=== PATIENT | female | born 1955 | race Caucasian/White ===

== ENCOUNTER 2016-08-03 16:45 | Outpatient (CLI) | payer OTHER | END 2016-08-03 16:46 | disposition home or self-care (01) | DX: L03.039 Cellulitis of unspecified toe (principal) ==

== ENCOUNTER 2016-10-12 07:50 | Day surgery (SDC) | payer OTHER ==
[2016-10-12] MEDS ORDERED: LACTATED RINGERS 1,000 ML IV ONE (08:26)
[2016-10-12] MEDS ORDERED: LIDOCAINE-MPF 2% 5 ML VIAL IM ONE (09:30)
[2016-10-12] MEDS ORDERED: PROPOFOL 200 MG/20 ML VIAL IVP ONE (09:30)
[2016-10-12] MEDS ORDERED: MIDAZOLAM 2 MG/2 ML VIAL IVP ONE (09:30)
[2016-10-12] MEDS ORDERED: fentaNYL 250 MCG/5 ML VIAL IVP ONE (09:30)
== END 2016-10-12 07:51 | disposition home or self-care (01) ==
PROC: 0DJD8ZZ Inspection of Lower Intestinal Tract, Via Natural or Artificial Opening Endoscopic (ICD-10-PCS; principal; 2016-10-12 09:15)
DX: Z12.11 Encounter for screening for malignant neoplasm of colon (principal); K57.30 Diverticulosis of large intestine without perforation or abscess without bleeding; K64.4 Residual hemorrhoidal skin tags; K64.8 Other hemorrhoids; Z88.2 Allergy status to sulfonamides; Z95.0 Presence of cardiac pacemaker; Z80.3 Family history of malignant neoplasm of breast; Z82.62 Family history of osteoporosis; Z82.49 Family history of ischemic heart disease and other diseases of the circulatory system; Z87.891 Personal history of nicotine dependence
CPT/HCPCS: 45378; J3010; J7120

== ENCOUNTER 2016-11-25 09:37 | Outpatient (CLI) | payer OTHER | END 2016-11-25 09:38 | disposition home or self-care (01) | DX: Z12.31 Encounter for screening mammogram for malignant neoplasm of breast (principal); Z80.3 Family history of malignant neoplasm of breast ==

== ENCOUNTER 2018-02-01 08:00 | Outpatient (CLI) | payer OTHER ==
[2018-02-01 13:33] LABS: BASOPHILS % (AUTO) 0.8 %; EOSINOPHILS # (AUTO) 0.1 10^3/uL (0.0-0.7); EOSINOPHILS % (AUTO) 2.2 %; HGB - HEMOGLOBIN 14.6 g/dL (12.0-16.0); LYMPHOCYTES # (AUTO) 1.3 10^3/uL (1.5-3.5); LYMPHOCYTES % (AUTO) 28.2 %; MEAN CORPUSCULAR HEMOGLOBIN 32.2 pg (27.0-31.0); MEAN CORPUSCULAR HGB CONC 34.9 g/dL (32.0-36.0); MEAN CORPUSCULAR VOLUME 92.2 fL (81.0-99.0); MEAN PLATELET VOLUME 7.9 fL (7.9-10.8); MONOCYTES # (AUTO) 0.4 10^3/uL (0.0-1.0); MONOCYTES % (AUTO) 8.3 %; NEUTROPHILS # (AUTO) 2.8 10^3/uL (1.5-6.6); NEUTROPHILS % (AUTO) 60.5 %; PLT - PLATELET COUNT 273 10^3/uL (130-450); RED BLOOD COUNT 4.55 10^6/uL (4.20-5.40); WHITE BLOOD COUNT 4.6 x10^3/uL (4.8-10.8)
[2018-02-01 14:05] LABS: ALBUMIN 4.1 g/dL (3.2-5.5); ALBUMIN/GLOBULIN RATIO 1.6 (1.0-2.2); ALKALINE PHOSPHATASE 78 IU/L (42-121); ALT ALANINE AMINOTRANSFERASE 29 IU/L (10-60); AST ASPARTATE AMINOTRANSFERASE 23 IU/L (10-42); BILIRUBIN,TOTAL 0.7 mg/dL (0.2-1.0); BUN - BLOOD UREA NITROGEN 15 mg/dL (6-20); CARBON DIOXIDE - CO2 26 mmol/L (21-32); CHLORIDE 104 mmol/L (101-111); CHOL/HDL RATIO 3.9 (<4.4); CHOLESTEROL 223 mg/dL; CREATININE 0.6 mg/dL (0.4-1.0); GFR - MDRD 101 (>89); GLUCOSE 103 mg/dL (70-100); HDL CHOLESTEROL 57 mg/dL; LDL CHOLESTEROL,CALCULATED 136 mg/dL; LDL/HDL RATIO 2.4 (<4.4); SODIUM 137 mmol/L (135-145); TOTAL PROTEIN 6.6 g/dL (6.7-8.2); VLDL CHOLESTEROL 30 mg/dL
[2018-02-01 14:38] LABS: HB2 TOTAL 15.6 g/dL; HEMOGLOBIN A1C 0.56 g/dL; HEMOGLOBIN A1C % 5.4 % (4.6-6.2)
== END 2018-02-01 08:01 | disposition home or self-care (01) ==
LOC: LAB.WCP 08:00
PROVIDERS: ATTEND Family Medicine
DX: Z00.00 Encounter for general adult medical examination without abnormal findings (principal); E78.5 Hyperlipidemia, unspecified; E55.9 Vitamin D deficiency, unspecified
CPT/HCPCS: 36415; 80053; 80061; 82306; 83036; 83721; 84443; 85025

== ENCOUNTER 2018-03-02 14:12 | Outpatient (CLI) | payer OTHER ==
--- NOTE | 2018-03-17 17:57 | Mammography Report ---
Reason: SCREENING MAMMO Procedure Date: 03/02/2018 Accession Number: [id number] / [id number] Procedure: ALISA - Screening Mammo Dig Bilat CPT Code: FULL RESULT: EXAM: Screening Mammo Dig Bilat DATE: 03/02/2018 3:05 PM CLINICAL HISTORY: 63-year-old female with family history of breast cancer in the mother in her 60s as well as an aunt and a grandmother at an unknown age. TECHNIQUE: Bilateral CC and MLO views were obtained. Cleavage view was also obtained. COMPARISON: 11/25/2016, 10/16/2015, 08/22/2014, 06/21/2013. FINDINGS: The breasts demonstrate scattered fibroglandular densities bilaterally. Coarse typically benign calcifications are seen breast. No suspicious masses, clustered microcalcifications, or regions of architectural distortion are identified. IMPRESSION: Benign findings RECOMMENDATION: Routine annual screening unless otherwise clinically indicated. BIRADS CATEGORY 2: Benign findings STANDARD QUALIFYING STATEMENTS: 1. This examination was not reviewed with the aid of Computer-Aided Detection (CAD). 2. A negative or benign imaging report should not delay biopsy if clinically suspicious findings are present. Consider surgical consultation if warrented. More than 5% of cancers are not identified by imaging. 3. Dense breasts may obscure an underlying neoplasm. 4. This examination was reviewed with the aid of 3D imaging (tomography).
== END 2018-03-02 14:13 | disposition home or self-care (01) ==
LOC: DI 14:12
PROVIDERS: ATTEND Family Medicine
DX: Z12.31 Encounter for screening mammogram for malignant neoplasm of breast (principal); Z80.3 Family history of malignant neoplasm of breast
CPT/HCPCS: 77063; 77067

== ENCOUNTER 2018-03-02 14:14 | Outpatient (CLI) | payer OTHER ==
--- NOTE | 2018-03-02 16:16 | DEXA Report ---
Reason: OSTEOPOROSIS NOS Procedure Date: 03/02/2018 Accession Number: [id number] / [id number] Procedure: DEX - Dexa Spine and/or Hip CPT Code: FULL RESULT: EXAM: DUAL EMISSION X-RAY ABSORPTIOMETRY (DXA) SCAN EXAM DATE: 03/02/2018 03:08 PM. CLINICAL HISTORY: OSTEOPOROSIS WITH HISTORY OF ALENDRONATE USAGE COMPARISON: 01/01/2016. ADDITIONAL PATIENT INFORMATION: Postmenopausal. TECHNIQUE: Dual energy x-ray absorptiometry (DXA) was performed on a [employer] System. Regions measured at the AP spine, femoral neck, and if needed, forearm. TECHNIQUE LIMITATIONS/EXCLUSIONS: FINDINGS: Bone mineral density L1-L4: 0.929 g/cm, T score -2.1 this represents a 0.4% increase in bone mineral density compared with the prior 01/01/2016 examination. Bone mineral density left femoral neck: 0.834 g/cm, T score -1.5. Total bone mineral density left hip: 0.861 g/cm, T score -1.2. This represents a 2.7% decrease in total left hip bone mineral density since 01/01/2016. IMPRESSION: The World Health Organization classification based on the International Reference Standard is osteopenia. The fracture risk is increased. World Health Organization (WHO) Reporting guidelines (based on lowest BMD) for postmenopausal and perimenopausal women, men age 50 years and older: Normal: T-score at or greater than -1.0 Osteopenia: T-score between -1.1 to -2.4 Osteoporosis: T-score at or less than -2.5 RADIA
== END 2018-03-02 14:15 | disposition home or self-care (01) ==
LOC: DI 14:14
PROVIDERS: ATTEND Physician Assistant Medical
DX: M85.89 Other specified disorders of bone density and structure, multiple sites (principal); Z79.83 Long term (current) use of bisphosphonates
CPT/HCPCS: 77080

== ENCOUNTER 2018-03-31 11:44 | Outpatient (CLI) | payer OTHER ==
[2018-03-31 12:10] LABS: CALCIUM 9.1 mg/dL (8.5-10.3); CREATININE 0.8 mg/dL (0.4-1.0)
--- NOTE | 2018-03-31 15:32 | CT Report ---
Reason: ABDOMINAL PAIN, LLQ Procedure Date: 03/31/2018 Accession Number: [id number] / [id number] Procedure: CT - Abdomen/Pelvis W/ CPT Code: FULL RESULT: EXAM: CT ABDOMEN AND PELVIS EXAM DATE: 03/31/2018 02:39 PM. CLINICAL HISTORY: Left lower quadrant pain. COMPARISONS: None. TECHNIQUE: Routine helical CT imaging was performed through the abdomen and pelvis. IV contrast: 100 mL Isovue-300. Enteric contrast: Yes. Reconstructions: Coronal and sagittal. In accordance with CT protocol optimization, one or more of the following dose reduction techniques were utilized for this exam: automated exposure control, adjustment of mA and/or KV based on patient size, or use of iterative reconstructive technique. FINDINGS: Lung Bases: Minor atelectatic changes are seen in the lung bases. No effusion. Liver: Normal. No masses. Gallbladder/Bile Ducts: Cholecystectomy changes are seen. There is no biliary dilation. Spleen: Normal. Pancreas: Normal. Adrenal Glands: Normal. Kidneys: Normal. No masses or hydronephrosis. Peritoneal Cavity/Bowel: There is moderate diverticulosis of the sigmoid colon. In the proximal to midportion there is mild wall thickening and fat stranding consistent with diverticulitis (image 66, series 3). There is no abscess, free fluid, or free air. There is no obstruction or ileus. The appendix is well visualized and normal. Pelvic Organs: Normal. The bladder and visualized pelvic organs are within normal limits. Vasculature: No aneurysms or other significant abnormality. Bones: No significant abnormality. Other: None. IMPRESSION: Mild uncomplicated sigmoid diverticulitis. No abscess, free fluid, or free air demonstrated. RADIA The above findings were discussed with Calli Valentin by Dr. Sundar Bryant at 15:30 hrs on 03/31/18.
[2018-03-31] MEDS ORDERED: IOPAMIDOL-300 50 ML VIAL PO ONE (18:45)
[2018-03-31] MEDS ORDERED: IOPAMIDOL-300 100 ML VIAL IVP ONE (18:45)
== END 2018-03-31 11:45 | disposition home or self-care (01) ==
LOC: LAB 11:44
PROVIDERS: ATTEND Physician Assistant
DX: K57.32 Diverticulitis of large intestine without perforation or abscess without bleeding (principal)
CPT/HCPCS: 36415; 74177; 80048; Q9967

== ENCOUNTER 2018-09-07 08:00 | Outpatient (CLI) | payer OTHER ==
[2018-09-07 13:24] LABS: CHOL/HDL RATIO 3.5 (<4.4); CHOLESTEROL 190 mg/dL; HDL CHOLESTEROL 55 mg/dL; LDL CHOLESTEROL,CALCULATED 105 mg/dL; LDL/HDL RATIO 1.9 (<4.4); VLDL CHOLESTEROL 30 mg/dL
== END 2018-09-07 23:59 ==
LOC: LAB.WCP 08:00
PROVIDERS: ATTEND Family Medicine
DX: E78.5 Hyperlipidemia, unspecified (principal)
CPT/HCPCS: 36415; 80061; 83721

== ENCOUNTER 2019-03-01 13:21 | Outpatient (CLI) | payer OTHER ==
--- NOTE | 2019-03-02 09:53 | XRAY Report ---
Reason: BRONCHITIS Procedure Date: 03/01/2019 Accession Number: [id number] / [id number] Procedure: WCP - Chest 2 View X-Ray CPT Code: 91784 FULL RESULT: EXAM: CHEST RADIOGRAPHY EXAM DATE: 03/01/2019 01:42 PM. CLINICAL HISTORY: Bronchitis. COMPARISON: None. TECHNIQUE: 2 views. FINDINGS: Lungs/Pleura: No focal opacities evident. No pleural effusion. No pneumothorax. Normal volumes. Mediastinum: Heart and mediastinal contours are unremarkable. Other: Bipolar cardiac pacer left chest. IMPRESSION: No focal consolidations identified. RADIA
== END 2019-03-01 23:59 | disposition home or self-care (01) ==
LOC: DI.WCP 13:21 → EDSTATUS 13:30 → DI.WCP 23:59
PROVIDERS: ATTEND Family Medicine
DX: J20.9 Acute bronchitis, unspecified (principal)
CPT/HCPCS: 71046

== ENCOUNTER 2019-03-29 09:20 | Outpatient (CLI) | payer OTHER | END 2019-03-29 23:59 | disposition home or self-care (01) | LOC: LAB.WCP 09:20 | PROVIDERS: ATTEND Family Medicine | DX: E55.9 Vitamin D deficiency, unspecified (principal); M81.0 Age-related osteoporosis without current pathological fracture | CPT/HCPCS: 36415; 82306 ==

== ENCOUNTER 2019-07-05 08:00 | Outpatient (CLI) | payer OTHER ==
[2019-07-05 12:23] LABS: BASOPHILS % (AUTO) 0.4 %; EOSINOPHILS # (AUTO) 0.1 10^3/uL (0.0-0.7); EOSINOPHILS % (AUTO) 2.9 %; HGB - HEMOGLOBIN 14.5 g/dL (12.0-16.0); LYMPHOCYTES # (AUTO) 1.3 10^3/uL (1.5-3.5); LYMPHOCYTES % (AUTO) 29.5 %; MEAN CORPUSCULAR HEMOGLOBIN 31.5 pg (27.0-31.0); MEAN CORPUSCULAR HGB CONC 33.6 g/dL (32.0-36.0); MEAN CORPUSCULAR VOLUME 93.7 fL (81.0-99.0); MEAN PLATELET VOLUME 9.4 fL (7.9-10.8); MONOCYTES # (AUTO) 0.5 10^3/uL (0.0-1.0); MONOCYTES % (AUTO) 10.5 %; NEUTROPHILS # (AUTO) 2.6 10^3/uL (1.5-6.6); NEUTROPHILS % (AUTO) 56.5 %; PLT - PLATELET COUNT 297 10^3/uL (130-450); RED CELL DISTRIBUTION WIDTH 12.1 % (12.0-15.0); WHITE BLOOD COUNT 4.6 x10^3/uL (4.8-10.8)
[2019-07-05 13:01] LABS: ALBUMIN 4.2 g/dL (3.2-5.5); ALBUMIN/GLOBULIN RATIO 1.4 (1.0-2.2); BILIRUBIN,TOTAL 0.5 mg/dL (0.2-1.0); CALCIUM 9.4 mg/dL (8.5-10.3); CREATININE 0.6 mg/dL (0.4-1.0); TOTAL PROTEIN 7.1 g/dL (6.7-8.2)
== END 2019-07-05 23:59 | disposition home or self-care (01) ==
LOC: LAB.WCP 08:00
PROVIDERS: ATTEND Family Medicine
DX: K57.92 Diverticulitis of intestine, part unspecified, without perforation or abscess without bleeding (principal)
CPT/HCPCS: 36415; 80053; 85025

== ENCOUNTER 2019-07-05 16:17 | Outpatient (CLI) | payer OTHER ==
[2019-07-05] MEDS ORDERED: IOVERSOL 320 50 ML VIAL ONE (16:21)
[2019-07-05] MEDS ORDERED: IOVERSOL 320 100 ML VIAL IVP ONE ×2 (16:21→17:37)
[2019-07-05] MEDS ORDERED: IOVERSOL 320 50 ML VIAL PO ONE (17:37)
--- NOTE | 2019-07-06 09:54 | CT Report ---
Reason: DIVERTICULITIS ACUTE Procedure Date: 07/05/2019 Accession Number: [id number] / [id number] Procedure: CT - Abdomen/Pelvis W CPT Code: Final Report FULL RESULT: EXAM: CT ABDOMEN AND PELVIS EXAM DATE: 07/05/2019 05:38 PM. CLINICAL HISTORY: DIVERTICULITIS ACUTE. COMPARISONS: ABDOMEN/PELVIS W/ 03/31/2018 2:35 PM. TECHNIQUE: Routine helical CT imaging was performed through the abdomen and pelvis. IV contrast: OPTI 320 100ML. Enteric contrast: No. Reconstructions: Coronal and sagittal. In accordance with CT protocol optimization, one or more of the following dose reduction techniques were utilized for this exam: automated exposure control, adjustment of mA and/or KV based on patient size, or use of iterative reconstructive technique. FINDINGS: Lung Bases: Pacer defibrillator. Mild bibasilar atelectasis Liver: Normal. No masses. Gallbladder/Bile Ducts: Post cholecystectomy Spleen: Normal. Pancreas: Normal. Adrenal Glands: Normal. Kidneys: Normal. No masses or hydronephrosis. Peritoneal Cavity/Bowel: Diverticulosis most prominent in the sigmoid colon.. No free fluid, free air or adenopathy. No masses or acute inflammatory process. The appendix is well visualized and normal. Pelvic Organs: Normal. The bladder and visualized pelvic organs are within normal limits. Vasculature: No aneurysms or other significant abnormality. Bones: No significant abnormality. Other: None. IMPRESSION: Diverticulosis. RADIA
== END 2019-07-05 16:18 | disposition home or self-care (01) ==
LOC: DI 16:17
PROVIDERS: ATTEND Family Medicine
DX: K57.30 Diverticulosis of large intestine without perforation or abscess without bleeding (principal)
CPT/HCPCS: 74177; Q9967

== ENCOUNTER 2019-07-29 11:07 | Outpatient (CLI) | payer OTHER ==
--- NOTE | 2019-07-29 15:37 | Ultrasound Report ---
Reason: PELVIC PAIN Procedure Date: 07/29/2019 Accession Number: [id number] / [id number] Procedure: US - Pelvic w/Transvaginal CPT Code: Final Report FULL RESULT: EXAM: PELVIC ULTRASOUND EXAM DATE: 07/29/2019 12:00 PM. CLINICAL HISTORY: Pelvic pain. COMPARISON: PELVIC W/TRANSVAGINAL 11/13/2015 1:25 PM. Abdomen/pelvis W/ 07/05/2019 5:32 PM. TECHNIQUE: Realtime transabdominal pelvic scan performed to identify the uterus and adnexa and as an overview of other pelvic structures, followed by transvaginal scan to provide greater detail of the uterus and adnexa, with static image documentation. FINDINGS: Uterus: 5 x 2.7 x 3.1 cm, volume 22.1 cc. Variable position. Normal overall size and echotexture. Masses: None. Endometrium: 3 mm. Normal. Cervix: No significant abnormality. Right Ovary: 1.7 x 0.8 x 1.4 cm, volume 1.1 cc. Normal echotexture and blood flow. Left Ovary: 2 x 0.9 x 1.2 cm, volume 1.2 cc. Normal echotexture and blood flow. Free Fluid: None. Other: None. IMPRESSION: No significant focal abnormality. RADIA
== END 2019-07-29 11:08 | disposition home or self-care (01) ==
LOC: DI 11:07
PROVIDERS: ATTEND Family Medicine
DX: R10.2 Pelvic and perineal pain (principal)
CPT/HCPCS: 76830; 76856

== ENCOUNTER 2020-02-11 11:08 | Emergency (ER) | payer MEDICARE, OTHER ==
--- NOTE | 2020-02-11 11:27 | ED Physician Documentation ---
PD HPI CHEST PAIN - Stated complaint Stated Complaint: CHEST PX - Chief complaint Chief Complaint: Cardiac - History obtained from History obtained from: Patient - History of Present Illness Timing - onset: Today (about 6 am this morning) Timing - onset during: Rest Timing - duration: Hours Timing - details: Abrupt onset, Still present Quality: Aching, Sharp, Pain (initially in mid thoracic back, then feeling in chest/left side. Not pleuritic.) Location: Left chest (Initially started in her mid thoracic back into the left side and seem to travel then to the left side of the chest in front of the chest with a sharp pressure feeling.) Radiation: Back Improved by: No: Rest Worsened by: Exertion (She felt it hurting more if she walked around the house into the other rooms. It was not pleuritic.). No: Inspiration, Movement, Position Associated symptoms: Nausea, Feeling faint / dizzy. No: Shortness of air, General Weakness, Cough Similar symptoms before: Has not had sx before Recently seen: Not recently seen Review of Systems Constitutional: denies: Fever, Chills Nose: denies: Rhinorrhea / runny nose, Congestion Throat: denies: Sore throat Cardiac: reports: Chest pain / pressure (just this morning; felt okay the past few days). denies: Pedal edema, Calf pain Respiratory: denies: Cough, Wheezing GI: reports: Abdominal Pain (She is feeling some left upper abdominal pain this morning as well), Nausea. denies: Vomiting Skin: denies: Rash, Lesions Neurologic: reports: Generalized weakness. denies: Focal weakness, Numbness, Difficulty speaking, Near syncope Endocrine: denies: Easy bruising / bleeding Immunocompromised: denies: Immunocompromised PD PAST MEDICAL HISTORY - Past Medical History Cardiovascular: None Respiratory: None GI: None : None Psych: None Musculoskeletal: Osteoporosis, Osteopenia, Chronic back pain - Past Surgical History General: Cholecystectomy - Present Medications Home Medications: Ambulatory Orders Medication Instructions Recorded Confirmed Acetaminophen/Caff/Dihydrocod 1 tab PO DAILY 10/12/16 10/12/16 [[id number]-Oiibfrozlhxb 320.5] Ergocalciferol [Vitamin D2] 8,000 units PO DAILY 10/12/16 10/12/16 Ibandronate Sodium [Boniva] 150 mg ONCE 10/12/16 10/12/16 Cephalexin [Keflex] 500 mg PO TID #21 capsule 02/11/20 Hydrocodone/Acetaminophen [[place] 1 each PO Q6H PRN #20 tablet 02/11/20 5-325 Tablet] Naproxen 375 mg PO TID #30 tablet 02/11/20 Ondansetron Odt [Zofran] 4 mg TL Q6H PRN #20 tablet 02/11/20 metroNIDAZOLE [Flagyl] 500 mg PO BID #14 tablet 02/11/20 - Allergies Allergies/Adverse Reactions: Allergies Allergy/AdvReac Type Severity Reaction Status Date / Time Sulfa (Sulfonamide Allergy Unknown Verified 02/11/20 11:24 Antibiotics) - Social History Does the pt smoke?: No Smoking Status: Never smoker Does the pt drink ETOH?: No Does the pt have substance abuse?: No - Family History Family history: reports: CAD. denies: Sudden , Venous thromboembolism - Immunizations Immunizations are current?: No - POLST Patient has POLST: No PD ED PE NORMAL - Vitals Vital signs reviewed: Yes - General General: Alert and oriented X 3, Well developed/nourished, Other (She appears somewhat uncomfortable but able to talk in clearly) - HEENT HEENT: Moist mucous membranes - Neck Neck: Supple, no meningeal sign, No adenopathy - Cardiac Cardiac: RRR, No murmur - Respiratory Respiratory: Clear bilaterally, Other (no chestwall tenderness) - Abdomen Abdomen: Normal bowel sounds, Soft, Non distended, No organomegaly, Other (She is tender with guarding in the left upper quadrant and somewhat to the mid upper abdomen. No chest wall tenderness is noted in the lower ribs or cartilage) - Derm Derm: Normal color, Warm and dry - Extremities Extremities: No deformity, No tenderness to palpate, Normal ROM s pain, No edema, No calf tenderness / cord - Neuro Neuro: Alert and oriented X 3, No motor deficit, Normal speech Results - Vitals Vitals: Vital Signs - 24 hr 02/11/20 02/11/20 02/11/20 11:15 11:24 11:54 Temperature 36.4 C L Heart Rate 69 70 63 Respiratory 22 16 16 Rate Blood Pressure 143/78 H 144/75 H 109/70 O2 Saturation 100 100 98 02/11/20 02/11/20 02/11/20 13:00 14:02 14:51 Temperature Heart Rate 62 66 59 L Respiratory 15 17 16 Rate Blood Pressure 102/55 L 105/55 L 108/56 L O2 Saturation 94 99 99 Oxygen O2 Source Room air - EKG (time done) 11:14 Rate: Rate (enter#) (71) [place]: Normal Intervals: Normal [place] QRS: Normal Ischemia: Normal ST segments. No: ST elevation c/w ischemia, ST depression Compare to prior EKG: Old EKG unavailable - Labs Labs: Laboratory Tests 02/11/20 02/11/20 02/11/20 11:20 11:20 11:20 WBC 5.4 RBC 4.45 Hgb 14.3 Hct 42.0 MCV 94.4 MCH 32.1 H MCHC 34.0 RDW 12.2 Plt Count 282 MPV 9.2 Neut # (Auto) 3.5 Lymph # (Auto) 1.4 L [place] # (Auto) 0.3 Eos # (Auto) 0.1 Baso # (Auto) 0.0 Absolute Nucleated RBC 0.00 Nucleated RBC % 0.0 Sodium 137 Potassium 3.6 Chloride 102 Carbon Dioxide 25 Anion Gap 10.0 BUN 12 Creatinine 0.6 Estimated GFR (MDRD) 100 Glucose 128 H Calcium 9.8 Magnesium 2.1 Total Bilirubin 0.4 AST 22 ALT 18 Alkaline Phosphatase 87 Troponin I High Sens < 2.3 L B-Natriuretic Peptide Total Protein 6.7 Albumin 4.1 Globulin 2.6 Albumin/Globulin Ratio 1.6 Lipase 28 02/11/20 11:20 WBC RBC Hgb Hct MCV MCH MCHC RDW Plt Count MPV Neut # (Auto) Lymph # (Auto) [place] # (Auto) Eos # (Auto) Baso # (Auto) Absolute Nucleated RBC Nucleated RBC % Sodium Potassium Chloride Carbon Dioxide Anion Gap BUN Creatinine Estimated GFR (MDRD) Glucose Calcium Magnesium Total Bilirubin AST ALT Alkaline Phosphatase Troponin I High Sens B-Natriuretic Peptide 30 Total Protein Albumin Globulin Albumin/Globulin Ratio Lipase - Rads (name of study) chest xray Radiology: Prelim report reviewed (No acute process. Round density in the right lower lung field similar to prior consistent with breast implant), See rad report abd CT Radiology: Prelim report reviewed, See rad report PD MEDICAL DECISION MAKING - ED course Complexity details: considered differential (We will initially assess for cardiothoracic processes given the back into chest pressure and pain. It is nonpleuritic. We will get EKG chest x-ray and labs. She is tender in the upper abdomen as well so may need to investigate upper abdominal processes as well), d/w patient Departure - Departure Disposition: 01 Home, Self Care Clinical Impression: Upper abdominal pain, Acute colitis Chest pain Qualifiers: Chest pain type: precordial pain Qualified Code(s): R07.2 - Precordial pain Condition: Stable Record reviewed to determine appropriate education?: Yes Instructions: ED Diverticulitis Follow-Up: Rosalio Gamboa MD [Primary Care Provider] - Prescriptions: metroNIDAZOLE [Flagyl] 500 mg PO BID #14 tablet Cephalexin [Keflex] 500 mg PO TID #21 capsule Naproxen 375 mg PO TID #30 tablet Hydrocodone/Acetaminophen [[place] 5-325 Tablet] 1 each PO Q6H PRN #20 tablet PRN Reason: Pain Ondansetron Odt [Zofran] 4 mg TL Q6H PRN #20 tablet PRN Reason: Nausea / Vomiting Comments: Your EKG, chest x-ray, blood tests evaluating the heart are normal so no signs of heart attack or heart failure or pneumonia etc. Your CT scan does show some early colitis in the transverse colon so could account for the upper abdominal pain into the back. Stay well-hydrated. Cephalexin and metronidazole for antibiotics for presumed infectious cause. Some naproxen twice daily for inflammation. Add ondansetron for nausea and hydrocodone for pain. Continue your other medications including the Metamucil. I would anticipate improvement over the next 2 to 3 days. Return if not improved in that timeframe or worsening symptoms. Discharge Date/Time: 02/11/20 14:45
[2020-02-11] MEDS ORDERED: NITROGLYCERIN SL 0.4 MG TABLET SL STA (11:42)
[2020-02-11] MEDS ORDERED: MORPHINE 2 MG/ML CARPUJECT IVP STA (11:42)
[2020-02-11 11:48] LABS: BASOPHILS % (AUTO) 0.6 %; EOSINOPHILS # (AUTO) 0.1 10^3/uL (0.0-0.7); EOSINOPHILS % (AUTO) 1.5 %; HGB - HEMOGLOBIN 14.3 g/dL (12.0-16.0); LYMPHOCYTES # (AUTO) 1.4 10^3/uL (1.5-3.5); LYMPHOCYTES % (AUTO) 25.3 %; MEAN CORPUSCULAR HEMOGLOBIN 32.1 pg (27.0-31.0); MEAN CORPUSCULAR VOLUME 94.4 fL (81.0-99.0); MEAN PLATELET VOLUME 9.2 fL (7.9-10.8); MONOCYTES # (AUTO) 0.3 10^3/uL (0.0-1.0); MONOCYTES % (AUTO) 6.3 %; NEUTROPHILS # (AUTO) 3.5 10^3/uL (1.5-6.6); NEUTROPHILS % (AUTO) 65.9 %; PLT - PLATELET COUNT 282 10^3/uL (130-450); RED BLOOD COUNT 4.45 10^6/uL (4.20-5.40); RED CELL DISTRIBUTION WIDTH 12.2 % (12.0-15.0); WHITE BLOOD COUNT 5.4 x10^3/uL (4.8-10.8)
--- NOTE | 2020-02-11 11:58 | XRAY Report ---
PROCEDURE: Chest 1 View X-Ray INDICATIONS: Chest Pain TECHNIQUE: One view of the chest was acquired. COMPARISON: 03/01/2019 FINDINGS: Surgical changes and devices: 2-lead left chest wall cardiac pacing device is unchanged when compared with the prior study.. Lungs and pleura: No pleural effusions or pneumothorax. Lungs are clear. Mediastinum: Mediastinal contours appear normal. Heart size is normal. Bones and chest wall: No suspicious bony lesions. Overlying soft tissues appear unremarkable. IMPRESSION: No acute cardiopulmonary process demonstrated radiographically. Reviewed by: Eamon Li MD on 02/11/2020 11:56 AM PDT Approved by: Eamon Li MD on 02/11/2020 11:56 AM PDT Station ID: [id number]
[2020-02-11 12:00] LABS: ALBUMIN 4.1 g/dL (3.2-5.5); ALBUMIN/GLOBULIN RATIO 1.6 (1.0-2.2); BILIRUBIN,TOTAL 0.4 mg/dL (0.2-1.0); CALCIUM 9.8 mg/dL (8.5-10.3); CREATININE 0.6 mg/dL (0.4-1.0); MAGNESIUM 2.1 mg/dL (1.7-2.8); TOTAL PROTEIN 6.7 g/dL (6.7-8.2)
[2020-02-11] MEDS ORDERED: IOVERSOL 320 100 ML VIAL IVP ONE ×2 (12:26→15:14)
[2020-02-11] MEDS ORDERED: KETOROLAC 15 MG/ML VIAL IVP STA (12:58)
[2020-02-11] MEDS ORDERED: HYDROmorphone 1 MG/ML CARPUJECT IVP STA (12:58)
--- NOTE | 2020-02-11 13:55 | CT Report ---
PROCEDURE: Abdomen/Pelvis W INDICATIONS: upper abd pain to left shoulder CONTRAST: IV CONTRAST: Optiray 320 ml: 100 PO CONTRAST: *NO PO CONTRAST TECHNIQUE: After the administration of 100 cc Isovue 320 IV contrast, 5 mm thick sections acquired from the valentine phragms to the symphysis. 5 mm thick coronal and sagittal reformats were acquired. For radiation do se reduction, the following was used: automated exposure control, adjustment of mA and/or kV accordi ng to patient size. COMPARISON: None. FINDINGS: Image quality: Excellent. ABDOMEN: Lung bases: Lung bases are clear. Heart size is normal. There are pacemaker leads in the heart. Solid organs: Liver and spleen are normal in size and enhancement. Gallbladder is surgically absent Biliary system is non dilated. Pancreas enhances normally. No adrenal nodules. Kidneys demonstra te normal size and enhancement, without hydronephrosis. Peritoneum and bowel: There is fatty infiltration throughout the [place] of the colon. The colon is fa irly decompressed and there are a few diverticula at the splenic flexure. Diverticulosis is also seen occasionally in the sigmoid colon. Bowel loops otherwise demonstrate normal wall thickness and calib er. No free fluid or air. Nodes and vessels: No retroperitoneal or mesenteric adenopathy by size criteria. Aorta and inferior vena cava are normal in size. Miscellaneous: No ventral hernias. PELVIS: Genitourinary: Bladder wall thickness is normal. Uterus and ovaries appear normal. Miscellaneous: No inguinal hernias or adenopathy. Bones: No suspicious bony lesions. No vertebral body compression fractures. IMPRESSION: 1. Fatty infiltration throughout the [place] of the fairly decompressed colon. This is nonspecific but can be a sign of early colitis or irritable bowel disease. Colitis, infectious, inflammatory, or irri table bowel disease. 2. Diverticulosis of the splenic flexure and sigmoid colon without acute diverticulitis. 3. Postcholecystectomy with expected biliary prominence. 4. Pacemaker leads seen in the heart. Otherwise normal lower chest. Reviewed by: Carissa Ariza MD on 02/11/2020 1:54 PM PDT Approved by: Carissa Ariza MD on 02/11/2020 1:54 PM PDT Station ID: [id number]
[2020-02-11] MEDS ORDERED: cefTRIAXone 1 GM VIAL IVP STA (14:23)
[2020-02-11] MEDS ORDERED: metroNIDAZOLE 250 MG TABLET PO STA (14:24)
[2020-02-11 14:51] VITALS: BP 108/56
== END 2020-02-11 14:45 | disposition home or self-care (01) ==
LOC: ED 11:08
DX: K52.9 Noninfective gastroenteritis and colitis, unspecified (principal); R07.2 Precordial pain; R53.1 Weakness; Z95.0 Presence of cardiac pacemaker; Z82.49 Family history of ischemic heart disease and other diseases of the circulatory system
CPT/HCPCS: 36415; 71045; 74177; 80053; 83690; 83735; 83880; 84484; 85025; 93005; 96374; 96375; 99284; 99285; A9270; J1170; Q9967

== ENCOUNTER 2020-05-15 07:29 | Day surgery (SDC) | payer MEDICARE, OTHER ==
[2020-05-15] MEDS ORDERED: LACTATED RINGERS 1,000 ML IV ONE ×2 (07:47→09:41)
--- NOTE | 2020-05-15 08:36 | ANESTHESIA ---
Pre-Anesthesia VS, & Labs - Diagnosis diverticulitis, failed c-scope w/NM in past - Procedure colonoscopy Vital Signs: Temp Pulse Resp BP Pulse Ox 36.5 C 83 16 134/88 H 99 05/15/20 07:40 05/15/20 07:40 05/15/20 07:40 05/15/20 07:40 05/15/20 07:40 Height: 5 ft 2 in Weight (kg): 54.1 kg Body Mass Index: 21.8 BMI Classification: Healthy weight - NPO >8 hours - Is Patient ?: No - Lab Results Lab results reviewed: Yes Home Medications and Allergies Ergocalciferol [Vitamin D2] 8,000 units PO DAILY 10/12/16 Allergies/Adverse Reactions: Allergies Allergy/AdvReac Type Severity Reaction Status Date / Time Sulfa (Sulfonamide Allergy Unknown Verified 05/14/20 15:05 Antibiotics) Anes History & Medical History - Anesthetic History Anesthesia Complications: reports: No previous complications, Post-Operative Nausea/Vomiting (nausea after last cscope) Family history of Anesthesia Complications: Denies Family history of Malignant Hyperthermia: Denies - Medical History Cardiovascular: reports: None Pulmonary: reports: None Gastrointestinal: reports: Colon polyps Urinary: reports: None Musculoskeletal: reports: None Endocrine/Autoimmune: reports: None Skin: reports: None Smoking Status: Never smoker - Surgical History General: Cholecystectomy Cardiothoracic: Pacemaker (SSS) Exam General: Alert, Oriented x3, Cooperative Dental: WNL Mouth Openin Fingerbreadth Neck Mobility: Normal Mallampati classification: II Thyromental Distance: 4-6 cm Respiratory: Lungs clear, Normal breath sounds, No respiratory distress Cardiovascular: Regular rate Neurological: Normal speech Mental/Cognitive Status: Alert/Oriented X3, Normal for patient Cognitive Status: Within normal limits Plan Anesthesia Type: MAC Consent for Procedure(s) Verified and Reviewed: Yes Code Status: Attempt Resuscitation ASA classification: 3-Severe systemic disease Is this case an emergency?: No
[2020-05-15] MEDS ORDERED: KETAMINE 500 MG/10 ML VIAL IVP ONE (09:12)
[2020-05-15] MEDS ORDERED: PROPOFOL 200 MG/20 ML VIAL IVP ONE (09:12)
[2020-05-15] MEDS ORDERED: MIDAZOLAM 2 MG/2 ML VIAL IVP ONE (09:12)
[2020-05-15 10:01] VITALS: BP 112/72
--- NOTE | 2020-05-15 10:05 | ANESTHESIA POST OP EVALUATION ---
Anesthesia Post Eval - Post Anesthesia Eval Vitals: Last Vital Signs Temp 36.4 C L 05/15/20 10:00 Pulse 79 05/15/20 10:00 Resp 18 05/15/20 10:00 BP 112/72 05/15/20 10:00 Pulse Ox 98 05/15/20 10:00 CV Function Including HR & BP: positive: Stable Pain Control: positive: Satisfactory Nausea & Vomiting: positive: Negative Mental Status: positive: Baseline Respiratory Status: Airway Patent Hydration Status: Satisfactory Anesthesia Complications: positive: None
== END 2020-05-15 07:30 | disposition home or self-care (01) ==
LOC: SDS 07:29
PROVIDERS: ATTEND Surgery
PROC: 0DJD8ZZ Inspection of Lower Intestinal Tract, Via Natural or Artificial Opening Endoscopic (ICD-10-PCS; principal; 2020-05-15 09:00)
DX: Z09 Encounter for follow-up examination after completed treatment for conditions other than malignant neoplasm (principal); K57.30 Diverticulosis of large intestine without perforation or abscess without bleeding; M81.0 Age-related osteoporosis without current pathological fracture; K58.9 Irritable bowel syndrome, unspecified; Z95.0 Presence of cardiac pacemaker; Z87.19 Personal history of other diseases of the digestive system; Z87.891 Personal history of nicotine dependence
CPT/HCPCS: 45378; J7120

== ENCOUNTER 2020-07-03 08:00 | Outpatient (CLI) | payer MEDICARE, OTHER ==
[2020-07-03 11:50] LABS: BASOPHILS % (AUTO) 0.7 %; EOSINOPHILS # (AUTO) 0.1 10^3/uL (0.0-0.7); EOSINOPHILS % (AUTO) 2.6 %; HGB - HEMOGLOBIN 14.6 g/dL (12.0-16.0); LYMPHOCYTES # (AUTO) 1.5 10^3/uL (1.5-3.5); LYMPHOCYTES % (AUTO) 33.6 %; MEAN CORPUSCULAR HEMOGLOBIN 31.1 pg (27.0-31.0); MEAN CORPUSCULAR HGB CONC 33.3 g/dL (32.0-36.0); MEAN CORPUSCULAR VOLUME 93.4 fL (81.0-99.0); MEAN PLATELET VOLUME 9.2 fL (7.9-10.8); MONOCYTES # (AUTO) 0.4 10^3/uL (0.0-1.0); MONOCYTES % (AUTO) 8.4 %; NEUTROPHILS # (AUTO) 2.5 10^3/uL (1.5-6.6); NEUTROPHILS % (AUTO) 54.3 %; PLT - PLATELET COUNT 299 10^3/uL (130-450); WHITE BLOOD COUNT 4.6 x10^3/uL (4.8-10.8)
[2020-07-03 12:11] LABS: ALBUMIN 4.2 g/dL (3.2-5.5); ALBUMIN/GLOBULIN RATIO 1.6 (1.0-2.2); ALKALINE PHOSPHATASE 81 IU/L (42-121); ALT ALANINE AMINOTRANSFERASE 23 IU/L (10-60); AST ASPARTATE AMINOTRANSFERASE 22 IU/L (10-42); BILIRUBIN,TOTAL 0.7 mg/dL (0.2-1.0); BUN - BLOOD UREA NITROGEN 15 mg/dL (6-20); CALCIUM 9.1 mg/dL (8.5-10.3); CARBON DIOXIDE - CO2 25 mmol/L (21-32); CHLORIDE 104 mmol/L (101-111); CHOL/HDL RATIO 3.3 (<4.4); CHOLESTEROL 195 mg/dL; CREATININE 0.7 mg/dL (0.4-1.0); GLUCOSE 105 mg/dL (70-100); HDL CHOLESTEROL 60 mg/dL; LDL CHOLESTEROL,CALCULATED 117 mg/dL; SODIUM 140 mmol/L (135-145); TOTAL PROTEIN 6.9 g/dL (6.7-8.2); VLDL CHOLESTEROL 18 mg/dL
== END 2020-07-03 23:59 | disposition home or self-care (01) ==
LOC: LAB.WCP 08:00
PROVIDERS: ATTEND Internal Medicine
DX: M85.80 Other specified disorders of bone density and structure, unspecified site (principal); Z13.220 Encounter for screening for lipoid disorders
CPT/HCPCS: 36415; 80053; 80061; 83721; 84443; 85025

== ENCOUNTER 2020-07-17 08:18 | Outpatient (CLI) | payer MEDICARE, OTHER ==
--- NOTE | 2020-07-18 09:55 | Mammography Report ---
BILATERAL DIGITAL SCREENING MAMMOGRAM 3D/2D: 07/17/2020 CLINICAL: Family history of breast cancer. Routine screening. Comparison is made to exams dated: 03/02/2018 mammogram, 11/25/2016 mammogram, and 10/16/2015 mammogram - [facility]. There are scattered fibroglandular elements in both breasts. No significant masses, calcifications, or other findings are seen in either breast. There has been no significant interval change. IMPRESSION: NEGATIVE There is no mammographic evidence of malignancy. A 1 year screening mammogram is recommended. This exam was interpreted at Station ID: [id number]. NOTE: For mammograms, a report in lay terms will be sent to the patient. Approximately 15% of breast malignancies will not be visualized mammographically. In the management of a palpable breast mass, a negative mammogram must not discourage biopsy of a clinically suspicious lesion. Electronically Signed By: Lucius monteiro/margaux:07/17/2020 09:23:24 ACR BI-RADS Category 1: Negative 3341F PARENCHYMAL PATTERN: (A) - The breast(s) demonstrate(s) scattered fibroglandular densities. BI-RADS CATEGORY: (1) - 1 RECOMMENDATION: (ANNUAL) - Recommend routine annual screening mammography. [id number] 1 year screening LATERALITY: (B)
== END 2020-07-17 08:19 | disposition home or self-care (01) ==
LOC: DI.N 08:18
PROVIDERS: ATTEND Internal Medicine
DX: Z12.31 Encounter for screening mammogram for malignant neoplasm of breast (principal); Z80.3 Family history of malignant neoplasm of breast

== ENCOUNTER 2020-07-24 08:17 | Outpatient (CLI) | payer MEDICARE, OTHER ==
--- NOTE | 2020-07-24 16:33 | DEXA Report ---
PROCEDURE: Dexa Spine and/or Hip INDICATIONS: OSTEOPENIA TECHNIQUE: Dual energy x-ray absorptiometry (DXA) was performed on a [employer] System. Regions measur ed are the AP Spine, femoral neck, and if needed forearm. COMPARISON: DEXA 03/02/2018 FINDINGS: Lumbar Spine: Bone Mineral Density 0.884 g/cm/cm,T score -2.5, compared to -2.1 Left Hip: Bone Mineral Density 0.814 g/cm/cm,T score -1.5, compared to -1.2 Left Femoral Neck: Bone Mineral Density 0.779 g/cm/cm, T score -1.9, compared to -1.5 (T score greater or equal to -1.0: NORMAL) (T score from -1.1 to -2.4: OSTEOPENIA) (T score less than or equal to -2.5 to: OSTEOPOROSIS) Impression: Progressive osteopenia within the left hip and femoral neck and now osteoporosis within t he lumbar spine. Patients with diagnosis of osteoporosis or osteopenia should have regular bone mineral density assess ment. For those eligible for Medicare, routine testing is allowed once every 2 years. Testing frequ ency can be increased for patients who have rapidly progressing disease or for those who are receivin g medical therapy to restore bone mass. Reviewed by: Cathryn Euceda MD on 07/24/2020 4:32 PM PST Approved by: Cathryn Euceda MD on 07/24/2020 4:32 PM PST Station ID: [id number]
== END 2020-07-24 08:18 | disposition home or self-care (01) ==
LOC: DI 08:17
PROVIDERS: ATTEND Internal Medicine
DX: M81.0 Age-related osteoporosis without current pathological fracture (principal)

== ENCOUNTER 2020-10-28 07:00 | Outpatient (CLI) | payer MEDICARE, OTHER ==
--- NOTE | 2020-10-28 14:03 | XRAY Report ---
PROCEDURE: Foot 2 View RT INDICATIONS: R FOOT PX TECHNIQUE: 2 views of the foot were acquired. COMPARISON: None FINDINGS: Bones: No fractures or dislocations. No suspicious bony lesions. Soft tissues: No tibiotalar joint effusion. Achilles tendon appears normal. IMPRESSION: No acute fracture. No osseous lesion. If symptoms and/or clinical suspicion for pathology continue, f urther assessment with repeat plain films, or advanced imaging (e.g., CT, MRI, or bone scan) is recom mended for further assessment. Reviewed by: Daysi Hernandez MD on 10/28/2020 2:02 PM PDT Approved by: Daysi Hernandez MD on 10/28/2020 2:02 PM PDT Station ID: [id number]
== END 2020-10-28 23:59 | disposition home or self-care (01) ==
LOC: DI.N 07:00
PROVIDERS: ATTEND Nurse Practitioner
DX: M79.671 Pain in right foot (principal)

== ENCOUNTER 2020-11-13 10:10 | Outpatient (CLI) | payer MEDICARE, OTHER ==
--- NOTE | 2020-11-13 15:22 | XRAY Report ---
PROCEDURE: Foot 3 View RT INDICATIONS: PAIN EDEMA RT FOREFOOT X 3 WKS TECHNIQUE: 3 views of the foot were acquired. COMPARISON: X-ray right foot, 2 views, 10/28/2020 FINDINGS: Bones: There is a nondisplaced fracture involving the proximal shaft of the fourth proximal phalanx. Soft tissues: No tibiotalar joint effusion. Achilles tendon appears normal. IMPRESSION: Nondisplaced fourth proximal phalangeal shaft fracture. Reviewed by: Harry Seals MD on 11/13/2020 3:21 PM PDT Approved by: Harry Seals MD on 11/13/2020 3:21 PM PDT Station ID: [id number]
== END 2020-11-13 10:11 | disposition home or self-care (01) ==
LOC: DI 10:10
PROVIDERS: ATTEND Podiatrist
DX: S92.514A Nondisplaced fracture of proximal phalanx of right lesser toe(s), initial encounter for closed fracture (principal)

== ENCOUNTER 2021-04-23 13:14 | Outpatient (CLI) | payer MEDICARE, OTHER ==
--- NOTE | 2021-04-23 15:00 | XRAY Report ---
PROCEDURE: Foot 3 View LT INDICATIONS: 3 VEIW R FOOT TECHNIQUE: 4 views of the foot were acquired. COMPARISON: None FINDINGS: Bones: No fractures or dislocations. No suspicious bony lesions. Soft tissues: No tibiotalar joint effusion. Achilles tendon appears normal. IMPRESSION: No acute fracture. No osseous lesion. If symptoms and/or clinical suspicion for pathology continue, f urther assessment with repeat plain films, or advanced imaging (e.g., CT, MRI, or bone scan) is recom mended for further assessment. Reviewed by: Daysi Hernandez MD on 04/23/2021 2:59 PM PDT Approved by: Daysi Hernandez MD on 04/23/2021 2:59 PM PDT Station ID: [id number]
== END 2021-04-23 13:15 | disposition home or self-care (01) ==
LOC: DI 13:14
PROVIDERS: ATTEND Podiatrist
DX: M79.672 Pain in left foot (principal)

== ENCOUNTER 2021-05-07 11:09 | Outpatient (CLI) | payer MEDICARE, OTHER ==
--- NOTE | 2021-05-07 12:14 | XRAY Report ---
PROCEDURE: Foot 3 View LT INDICATIONS: ACUTE FOOT PAIN L FOOT TECHNIQUE: 3 views of the foot were acquired. COMPARISON: None FINDINGS: Bones: No fractures or dislocations. No suspicious bony lesions. Soft tissues: No tibiotalar joint effusion. Achilles tendon appears normal. IMPRESSION: Normal left foot Reviewed by: Eduardo Conley on 05/07/2021 12:13 PM [facility] Approved by: Eduardo Conley on 05/07/2021 12:13 PM [facility] Station ID: [id number]
== END 2021-05-07 11:10 | disposition home or self-care (01) ==
LOC: DI 11:09
PROVIDERS: ATTEND Podiatrist
DX: M79.672 Pain in left foot (principal)

== ENCOUNTER 2021-08-13 10:36 | Outpatient (CLI) | payer MEDICARE, OTHER ==
--- NOTE | 2021-08-14 07:22 | Mammography Report ---
BILATERAL DIGITAL SCREENING MAMMOGRAM 3D/2D: 08/13/2021 CLINICAL: Family history of breast cancer. Routine screening. Comparison is made to exams dated: 07/17/2020 mammogram, 03/02/2018 mammogram, 11/25/2016 mammogram, 10/15 mammogram, 08/22/2014 mammogram, and 06/21/2013 mammogram - [facility]. There are scattered fibroglandular elements in both breasts. No significant masses, calcifications, or other findings are seen in either breast. There has been no significant interval change. IMPRESSION: NEGATIVE There is no mammographic evidence of malignancy. A 1 year screening mammogram is recommended. This exam was interpreted at Station ID: [id number]. NOTE: For mammograms, a report in lay terms will be sent to the patient. Approximately 15% of breast malignancies will not be visualized mammographically. In the management of a palpable breast mass, a negative mammogram must not discourage biopsy of a clinically suspicious lesion. Electronically Signed By: Eamon Li M.D., jr/margaux:08/13/2021 15:58:10 ACR BI-RADS Category 1: Negative 3341F PARENCHYMAL PATTERN: (A) - The breast(s) demonstrate(s) scattered fibroglandular densities. BI-RADS CATEGORY: (1) - 1 RECOMMENDATION: (ANNUAL) - Recommend routine annual screening mammography. [id number] 1 year screening LATERALITY: (B)
== END 2021-08-13 10:37 | disposition home or self-care (01) ==
LOC: DI.N 10:36
PROVIDERS: ATTEND Internal Medicine
DX: Z12.31 Encounter for screening mammogram for malignant neoplasm of breast (principal); Z80.3 Family history of malignant neoplasm of breast

== ENCOUNTER 2021-09-11 12:48 | Emergency (ER) | payer MEDICARE, OTHER ==
[2021-09-11] MEDS ORDERED: DEXAMETHASONE 10 MG/ML VIAL PO STA (13:11)
[2021-09-11] MEDS ORDERED: CHERRY SYRUP 10 ML UDC PO ONE (13:11)
[2021-09-11] MEDS ORDERED: KETOROLAC 60 MG/2 ML VIAL IM STA (13:11)
--- NOTE | 2021-09-11 13:18 | ED Physician Documentation ---
PD HPI BACK PAIN - Stated complaint Stated Complaint: BACK PX - Chief complaint Chief Complaint: Back Pain - History obtained from History obtained from: Patient - History of Present Illness Timing - onset: Today Timing - duration: Hours Timing - details: Abrupt onset, Still present Location: Upper, Left Quality: Pain, Spasm, Sharp, Similar to prior episodes Associated symptoms: No: Fever, Weakness, Numbness, Incontinent of urine, Unable to urinate, Hematuria, Incontinent of stool Improves with: Rest, Ice, Position Worsened by: Movement, Lifting, Twisting Contributing factors: Other (baled out an above ground pond this morning and following that went in to mop and had severe pain/spasm in the left rhomboids.) Similar symptoms before: Diagnosis (back spasm) Recently seen: Not recently seen Review of Systems Constitutional: denies: Fever Eyes: denies: Decreased vision Ears: denies: Ear pain Nose: denies: Congestion Throat: denies: Sore throat Cardiac: denies: Chest pain / pressure, Palpitations Respiratory: denies: Dyspnea, Cough GI: denies: Abdominal Pain, Nausea, Vomiting, Diarrhea : denies: Dysuria Skin: denies: Rash Musculoskeletal: reports: Back pain. denies: Neck pain, Extremity pain Neurologic: denies: Generalized weakness, Focal weakness, Numbness, Headache, Head injury, LOC PD PAST MEDICAL HISTORY - Past Medical History Cardiovascular: None Respiratory: None Endocrine/Autoimmune: None GI: Colon polyps : None HEENT: None Psych: None Musculoskeletal: None Derm: None - Past Surgical History General: Cholecystectomy Cardiovascular: Pacemaker (SSS) - Present Medications Home Medications: Ambulatory Orders Medication Instructions Recorded Confirmed Ergocalciferol [Vitamin D2] 8,000 units PO DAILY 10/12/16 05/14/20 Cyclobenzaprine [Flexeril] 10 mg PO TID PRN #20 tablet 09/11/21 HYDROcod/ACETAM 5/325 [[place] 5/325] 1 - 2 tablet PO Q6H PRN #14 tablet 09/11/21 - Allergies Allergies/Adverse Reactions: Allergies Allergy/AdvReac Type Severity Reaction Status Date / Time Sulfa (Sulfonamide Allergy Unknown Verified 09/11/21 12:58 Antibiotics) - Social History Does the pt smoke?: No Smoking Status: Never smoker Does the pt drink ETOH?: No Does the pt have substance abuse?: No - Immunizations Immunizations are current?: No - POLST Patient has POLST: No PD ED PE NORMAL - Vitals Vital signs reviewed: Yes (normal pulse checked at bedside is 70. The triage nurse indicates error. ) - General General: Alert and oriented X 3, No acute distress, Well developed/nourished - HEENT HEENT: Atraumatic, PERRL - Neck Neck: Supple, no meningeal sign - Respiratory Respiratory: No respiratory distress, Other (point tenderness to the left rhomboid muscles on palpation especially lower segment.) - Back Back: No CVA TTP, No spinal TTP - Derm Derm: Normal color, Warm and dry, No rash - Extremities Extremities: No deformity, No edema - Neuro Neuro: Alert and oriented X 3, supervisor finishing 2-12 intact, No motor deficit, No sensory deficit, Normal speech Eye Opening: Spontaneous Motor: Obeys Commands Verbal: Oriented GCS Score: 15 - Psych Psych: Normal mood, Normal affect Results - Vitals Vitals: Vital Signs - 24 hr 09/11/21 12:54 Temperature 36.0 C L Heart Rate 71 Respiratory 20 Rate Blood Pressure 124/72 O2 Saturation 97 Oxygen O2 Source Room air PD MEDICAL DECISION MAKING - ED course Complexity details: reviewed results, re-evaluated patient, considered differential, d/w patient ED course: 66-year-old female with overuse of the right rhomboid area has significant pain to the area and she is administered dexamethasone and Toradol here in the emergency department we will place her on a short course of pain medication muscle relaxant. Departure - Departure Disposition: 01 Home, Self Care Clinical Impression: Rhomboid muscle strain Qualifiers: Encounter type: initial encounter Qualified Code(s): S29.012A - Strain of muscle and tendon of back wall of thorax, initial encounter Condition: Stable Instructions: ED Spasm Back No Trauma Follow-Up: Joe Del Cid MD [Primary Care Provider] - Prescriptions: Cyclobenzaprine [Flexeril] 10 mg PO TID PRN #20 tablet PRN Reason: Spasms HYDROcod/ACETAM 5/325 [[place] 5/325] 1 - 2 tablet PO Q6H PRN #14 tablet PRN Reason: Pain Comments: Natacha, today it looks like you have spasm of the rhomboid muscles from overuse. The recommendation is to ice and stretch the area and stay hydrated. I have provided some medication for you for the discomfort. Both a muscle relaxant and a narcotic pain reliever. The narcotic pain reliever is constipating and can be habit-forming. You cannot drive or operate machinery after taking either one of these medications. The Flexeril, the muscle relaxant, does not actually do anything to the muscles, but makes it so you do not move around as much. My recommendation is to take this at night so that you sleep better. The expectation is that with ice and stretch and time the symptoms will resolve and this usually takes about 2 to 5 days. You may have some residual soreness for up to 2 weeks. medications have been e-scribed to [email or web address].
[2021-09-11 13:53] VITALS: BP 107/67
== END 2021-09-11 13:53 | disposition home or self-care (01) ==
LOC: ED 12:48
DX: S29.012A Strain of muscle and tendon of back wall of thorax, initial encounter (principal); X58.XXXA Exposure to other specified factors, initial encounter
CPT/HCPCS: 96372; 99282; 99283; A9270

== ENCOUNTER 2022-06-21 08:21 | Outpatient (CLI) | payer MEDICARE, OTHER ==
[2022-06-21 11:53] LABS: BUN - BLOOD UREA NITROGEN 15 mg/dL (6-20); CARBON DIOXIDE - CO2 26 mmol/L (21-32); CHLORIDE 105 mmol/L (101-111); CHOLESTEROL 241 mg/dL; CREATININE 0.7 mg/dL (0.4-1.0); GFR - MDRD 83 (>89); GLUCOSE 102 mg/dL (70-100); HDL CHOLESTEROL 60 mg/dL; LDL CHOLESTEROL,CALCULATED 143 mg/dL; LDL/HDL RATIO 2.4 (<4.4); POTASSIUM 4.1 mmol/L (3.5-5.0); SODIUM 138 mmol/L (135-145); TRIGLYCERIDES 189 mg/dL; VLDL CHOLESTEROL 38 mg/dL
== END 2022-06-21 08:22 | disposition home or self-care (01) ==
LOC: LAB.N 08:21
PROVIDERS: ATTEND Internal Medicine
DX: I49.5 Sick sinus syndrome (principal); E78.5 Hyperlipidemia, unspecified; E55.9 Vitamin D deficiency, unspecified
CPT/HCPCS: 36415; 80048; 80061; 82306; 83721

== ENCOUNTER 2022-11-18 08:01 | Outpatient (CLI) | payer MEDICARE, OTHER ==
[2022-11-18 12:29] LABS: CHOL/HDL RATIO 3.5 (<4.4); CHOLESTEROL 219 mg/dL; HDL CHOLESTEROL 62 mg/dL; LDL CHOLESTEROL,CALCULATED 133 mg/dL; LDL/HDL RATIO 2.1 (<4.4); TRIGLYCERIDES 119 mg/dL; VLDL CHOLESTEROL 24 mg/dL
== END 2022-11-18 08:02 | disposition home or self-care (01) ==
LOC: LAB.N 08:01
PROVIDERS: ATTEND Internal Medicine
DX: E78.5 Hyperlipidemia, unspecified (principal)
CPT/HCPCS: 36415; 80061; 83721

== ENCOUNTER 2022-12-02 15:04 | Outpatient (CLI) | payer MEDICARE, OTHER ==
--- NOTE | 2022-12-02 16:21 | DEXA Report ---
PROCEDURE: Dexa Spine and/or Hip INDICATIONS: OSTEOPENIA TECHNIQUE: Dual energy x-ray absorptiometry (DXA) was performed on a [employer] System. Regions measur ed are the AP Spine, femoral neck, and if needed forearm. COMPARISON: 07/24/2021 FINDINGS: Lumbar Spine: Bone Mineral Density 0.933 g/cm/cm,T score -2.1. Previously -2.5 Left Femoral Neck: Bone Mineral Density 0.846 g/cm/cm, T score -1.4. Previously -1.5 Left Hip: Bone Mineral Density 0.73 g/cm/cm,T score -1.1. Previously -1.9 (T score greater or equal to -1.0: NORMAL) (T score from -1.1 to -2.4: OSTEOPENIA) (T score less than or equal to -2.5 to: OSTEOPOROSIS) Impression: By WHO criteria, this patient has low bone density (osteopenia). Interval statistical increase in bone mineral density of the lumbar spine. Interval statistical incre ase in bone mineral density of the hip. Patients with diagnosis of osteoporosis or osteopenia should have regular bone mineral density assess ment. For those eligible for Medicare, routine testing is allowed once every 2 years. Testing frequ ency can be increased for patients who have rapidly progressing disease or for those who are receivin g medical therapy to restore bone mass. Reviewed by: Eben Huerta MD on 12/02/2022 3:20 PM [facility] Approved by: Eben Huerta MD on 12/02/2022 3:20 PM [facility] Station ID: [id number]
== END 2022-12-02 15:05 | disposition home or self-care (01) ==
LOC: DI 15:04
PROVIDERS: ATTEND Internal Medicine
DX: M85.89 Other specified disorders of bone density and structure, multiple sites (principal)

== ENCOUNTER 2023-04-06 10:03 | Emergency (ER) | payer MEDICARE, OTHER ==
--- NOTE | 2023-04-06 10:53 | XRAY Report ---
PROCEDURE: Knee 4 View RT INDICATIONS: fall/pain TECHNIQUE: 4 views of the right knee(s) were acquired. COMPARISON: None. FINDINGS: Bones: There is a mildly displaced inferior patellar fracture. No suspicious bony lesions. Soft tissues: Moderate knee joint effusion. No suspicious soft tissue calcifications or masses. IMPRESSION: Mildly displaced inferior patellar fracture. Reviewed by: Cathryn Euceda MD on 04/06/2023 10:51 AM PDT Approved by: Cathryn Euceda MD on 04/06/2023 10:51 AM PDT Station ID: [id number]
--- NOTE | 2023-04-06 11:36 | ED Physician Documentation ---
PD HPI Fall - Stated complaint Stated Complaint: GLF, GEN WEAKNESS - Chief complaint Chief Complaint: Trauma Ext - History obtained from History obtained from: Patient - Additional information Additional information: Patient is a 68-year-old female presenting for evaluation of a head injury and right knee pain after a trip and fall this morning. She was leaving the dentist office when her foot hit against a curb and she fell forward. She did hit her head. She denies LOC. She does not take a blood thinner. She reports pain primarily to the right knee. Patient reports having a history of osteoporosis. Denies precipitating symptoms such as dizziness, lightheadedness, chest pain. Review of Systems Constitutional: denies: Fever Cardiac: denies: Chest pain / pressure Respiratory: denies: Dyspnea Musculoskeletal: reports: Extremity pain Neurologic: reports: Head injury. denies: Syncope PD PAST MEDICAL HISTORY - Past Medical History Cardiovascular: None, Other (Pacemaker placement) Respiratory: None Endocrine/Autoimmune: None GI: Colon polyps : None HEENT: None Psych: None Musculoskeletal: None Derm: None - Past Surgical History General: Cholecystectomy Cardiovascular: Pacemaker - Present Medications Home Medications: Ambulatory Orders Medication Instructions Recorded Confirmed Ergocalciferol [Vitamin D2] 8,000 units PO DAILY 10/12/16 04/06/23 Cyclobenzaprine [Flexeril] 10 mg PO TID PRN #20 tablet 09/11/21 04/06/23 Pantoprazole Sodium [Protonix] 20 mg PO DAILY #30 tablet 02/08/22 04/06/23 Alendronate [Fosamax] 1 tab PO OAW 04/06/23 04/06/23 Oxycodone HCl/Acetaminophen 1 each PO Q6H PRN #14 tablet 04/06/23 [Percocet 5-325 mg Tablet] - Allergies Allergies/Adverse Reactions: Allergies Allergy/AdvReac Type Severity Reaction Status Date / Time Iodinated Contrast Media Allergy Anaphylaxis Verified 04/06/23 10:11 Sulfa (Sulfonamide Allergy Unknown Verified 02/08/22 11:31 Antibiotics) - Social History Does the pt smoke?: No Smoking Status: Never smoker Does the pt drink ETOH?: No Does the pt have substance abuse?: No - Immunizations Immunizations are current?: No - POLST Patient has POLST: No PD ED PE NORMAL - General General: Alert and oriented X 3, No acute distress, Well developed/nourished - HEENT HEENT: PERRL, EOMI, Moist mucous membranes, Pharynx benign, Other (Contusion to nose, no septal hematoma) - Neck Neck: Supple, no meningeal sign, No bony TTP - Cardiac Cardiac: RRR, No murmur, Strong equal pulses - Respiratory Respiratory: No respiratory distress, Clear bilaterally - Abdomen Abdomen: Soft, Non tender - Derm Derm: Warm and dry - Extremities Extremities: Other (Abrasions to bilateral knees; Bruising and swelling to right knee, pain with range of motion, normal range of motion of left knee And hips, normal range of motion Of joints of upper extremities) - Neuro Neuro: Alert and oriented X 3, No motor deficit, No sensory deficit, Normal speech Eye Opening: Spontaneous Motor: Obeys Commands Verbal: Oriented GCS Score: 15 Results - Vitals Vitals: Vital Signs - 24 hr 04/06/23 04/06/23 04/06/23 10:08 12:47 13:09 Temperature 36.9 C Heart Rate 65 65 65 Respiratory 20 20 17 Rate Blood Pressure 139/83 H 120/72 107/70 O2 Saturation 100 98 96 04/06/23 13:16 Temperature 36.6 C Heart Rate Respiratory Rate Blood Pressure O2 Saturation Oxygen O2 Source Room air PD Medical Decision Making - ED course Complexity details: reviewed results, re-evaluated patient, d/w patient, d/w family () ED course: Patient is a 68-year-old female presenting for evaluation after trip and fall with right knee pain and a head injury. No LOC and does not take blood thinners. C-spine is cleared by exam. CT head which I reviewed is negative for any intracranial hemorrhage. Right knee x-ray which I reviewed demonstrates a minimally displaced patella fracture. Patient was given a knee immobilizer and crutches. She is instructed to follow-up with orthopedic surgery. Patient was given a Prescription for pain medication. She is advised on concerning symptoms to return for. Departure - Departure Disposition: 01 Home, Self Care Clinical Impression: Right patella fracture, Head injury Condition: Stable Instructions: ED Head Injury Closed, ED Fx Patella Follow-Up: Ken Sol MD [Provider Admit Priv/Credential] - Within 1 week Prescriptions: Oxycodone HCl/Acetaminophen [Percocet 5-325 mg Tablet] 1 each PO Q6H PRN #14 tablet PRN Reason: pain Comments: Your x-ray shows a fracture through your patella which is your kneecap. Your head CT does not show any injuries fortunately from your fall. We are going to place you into a knee immobilizer and give you crutches. I have sent a pain medication to [facility] in [place]. You need close follow-up with her orthopedic [place]: [place]CP List
[2023-04-06] MEDS ORDERED: oxyCODONE 5 MG TABLET PO STA (11:41)
--- NOTE | 2023-04-06 12:49 | CT Report ---
PROCEDURE: HEAD WO INDICATIONS: fall/head injury TECHNIQUE: Noncontrast 4.5 mm thick angled axial sections acquired from the foramen magnum to the vertex. For r adiation dose reduction, the following was used: automated exposure control, adjustment of mA and/or kV according to patient size. COMPARISON: None. FINDINGS: Image quality: Excellent. CSF spaces: Basal cisterns are patent. No extra-axial fluid collections. Ventricles are normal in size and shape. Brain: No midline shift. No intracranial masses or hemorrhage. Razo-white matter interface is norm al. Skull and face: Calvarium and visualized facial bones are intact, without suspicious lesions. Sinuses: Visualized sinuses and mastoids are clear. IMPRESSION: 1. No acute intracranial process. Reviewed by: Cathryn Euceda MD on 04/06/2023 12:48 PM PDT Approved by: Cathryn Euceda MD on 04/06/2023 12:48 PM PDT Station ID: [id number]
[2023-04-06 13:22] VITALS: BP 107/70; O2SAT 96
== END 2023-04-06 13:30 | disposition home or self-care (01) ==
LOC: ED 10:03
DX: S82.001A Unspecified fracture of right patella, initial encounter for closed fracture (principal); S09.90XA Unspecified injury of head, initial encounter; S00.33XA Contusion of nose, initial encounter; S80.212A Abrasion, left knee, initial encounter; S80.211A Abrasion, right knee, initial encounter; W01.198A Fall on same level from slipping, tripping and stumbling with subsequent striking against other object, initial encounter; Y93.01 Activity, walking, marching and hiking; Y92.531 Health care provider office as the place of occurrence of the external cause
CPT/HCPCS: 70450; 73564; 99283; 99284; A9270

== ENCOUNTER 2023-04-13 08:00 | Outpatient (CLI) | payer MEDICARE, OTHER ==
--- NOTE | 2023-04-12 09:44 | XRAY Report ---
PROCEDURE: Knee 2 View RT INDICATIONS: RIGHT PATELLA FRACTURE TECHNIQUE: 2 views of the right knee(s) were acquired. COMPARISON: 04/06/2023 FINDINGS: Bones: Slight interval bone remodeling of the inferior pole patellar fracture. Soft tissues: Moderate knee joint effusion. No suspicious soft tissue calcifications or masses. IMPRESSION: Slight interval healing of the patella fracture. Reviewed by: Walt David on 04/12/2023 9:43 AM PDT Approved by: Walt David on 04/12/2023 9:43 AM PDT Station ID: [id number]
== END 2023-04-13 23:59 | disposition home or self-care (01) ==
LOC: DI.WOS 08:00
PROVIDERS: ATTEND Orthopaedic Surgery
DX: S82.001D Unspecified fracture of right patella, subsequent encounter for closed fracture with routine healing (principal)

== ENCOUNTER 2023-05-12 08:00 | Outpatient (CLI) | payer MEDICARE, OTHER ==
--- NOTE | 2023-05-12 19:49 | XRAY Report ---
PROCEDURE: Knee 2 View RT INDICATIONS: RIGHT PATELLA FRACTURE TECHNIQUE: 2 views of the knee were acquired. COMPARISON: Right knee radiographs 04/12/2023 FINDINGS: Bones: There is a minimally displaced fracture at the inferior pole of the patella. Alignment does n ot appear to be unchanged compared to the radiographs in 04/12/2023. Soft tissues: Moderate knee joint effusion. No suspicious soft tissue calcifications or masses. IMPRESSION: Minimally displaced fracture of the inferior pole of patella with unchanged alignment. Moderate joint effusion. Reviewed by: Lucius Vogel MD on 05/12/2023 7:47 PM PST Approved by: Lucius Vogel MD on 05/12/2023 7:47 PM PST Station ID: [id number]
== END 2023-05-12 23:59 | disposition home or self-care (01) ==
LOC: DI.WOS 08:00
PROVIDERS: ATTEND Orthopaedic Surgery
DX: S82.034D Nondisplaced transverse fracture of right patella, subsequent encounter for closed fracture with routine healing (principal); M25.461 Effusion, right knee

== ENCOUNTER 2023-06-09 08:00 | Outpatient (CLI) | payer MEDICARE, OTHER ==
--- NOTE | 2023-06-09 13:41 | XRAY Report ---
PROCEDURE: Knee 2 View RT INDICATIONS: RIGHT PATELLA FRACTURE TECHNIQUE: 2 views of the knee(s) were acquired. COMPARISON: Right knee radiographs 05/12/2023, 04/12/2023. FINDINGS: Bones: Ongoing healing of the inferior patellar fracture. No significant distraction. No dislocation s. No suspicious bony lesions. Soft tissues: Small right knee joint effusion. No suspicious soft tissue calcifications or masses. IMPRESSION: Ongoing healing of the inferior patellar fracture. Reviewed by: Winston Urbina MD on 06/09/2023 1:39 PM PST Approved by: Winston Urbina MD on 06/09/2023 1:39 PM PST Station ID: [id number]
== END 2023-06-09 23:59 | disposition home or self-care (01) ==
LOC: DI.WOS 08:00
PROVIDERS: ATTEND Orthopaedic Surgery
DX: S82.034D Nondisplaced transverse fracture of right patella, subsequent encounter for closed fracture with routine healing (principal)

== ENCOUNTER 2023-08-18 14:18 | Outpatient (CLI) | payer MEDICARE, OTHER ==
--- NOTE | 2023-08-18 16:27 | XRAY Report ---
PROCEDURE: Foot 3+V RT (Weight Bearing) INDICATIONS: RIGHT FOOT PAIN TECHNIQUE: 3 views of the foot were acquired. COMPARISON: None. FINDINGS: Bones: No fractures or dislocations. No suspicious bony lesions. Soft tissues: No suspicious soft tissue calcifications or masses. IMPRESSION: No acute bony abnormality. If pain persists with conservative management, consider repeat radiographs in 7-10 days or consider f urther evaluation with cross-sectional imaging such as CT or MRI. Reviewed by: Nakita Zeng MD on 08/18/2023 4:26 PM PST Approved by: Nakita Zeng MD on 08/18/2023 4:26 PM PST Station ID: [id number]
== END 2023-08-18 14:19 | disposition home or self-care (01) ==
LOC: DI 14:18
PROVIDERS: ATTEND Podiatrist
DX: M79.671 Pain in right foot (principal)

== ENCOUNTER 2023-11-30 08:11 | Outpatient (CLI) | payer MEDICARE, OTHER ==
[2023-11-30 11:49] LABS: BASOPHILS % (AUTO) 0.7 %; EOSINOPHILS # (AUTO) 0.1 10^3/uL (0.0-0.7); EOSINOPHILS % (AUTO) 3.1 %; HCT - HEMATOCRIT 44.5 % (37.0-47.0); HGB - HEMOGLOBIN 14.7 g/dL (12.0-16.0); LYMPHOCYTES # (AUTO) 1.2 10^3/uL (1.5-3.5); LYMPHOCYTES % (AUTO) 25.8 %; MEAN CORPUSCULAR HEMOGLOBIN 30.9 pg (27.0-31.0); MEAN CORPUSCULAR VOLUME 93.5 fL (81.0-99.0); MEAN PLATELET VOLUME 9.3 fL (7.9-10.8); MONOCYTES # (AUTO) 0.4 10^3/uL (0.0-1.0); MONOCYTES % (AUTO) 8.3 %; NEUTROPHILS # (AUTO) 2.8 10^3/uL (1.5-6.6); NEUTROPHILS % (AUTO) 61.4 %; PLT - PLATELET COUNT 286 10^3/uL (130-450); RED BLOOD COUNT 4.76 10^6/uL (4.20-5.40); RED CELL DISTRIBUTION WIDTH 12.5 % (12.0-15.0); WHITE BLOOD COUNT 4.6 x10^3/uL (4.8-10.8)
[2023-11-30 12:18] LABS: ALBUMIN 4.3 g/dL (3.2-5.5); ALBUMIN/GLOBULIN RATIO 1.7 (1.0-2.2); ALKALINE PHOSPHATASE 74 IU/L (42-121); ALT ALANINE AMINOTRANSFERASE 24 IU/L (10-60); AST ASPARTATE AMINOTRANSFERASE 19 IU/L (10-42); BILIRUBIN,TOTAL 0.4 mg/dL (0.2-1.0); BUN - BLOOD UREA NITROGEN 14 mg/dL (6-20); CALCIUM 9.4 mg/dL (8.5-10.3); CARBON DIOXIDE - CO2 29 mmol/L (21-32); CHLORIDE 105 mmol/L (101-111); CHOL/HDL RATIO 3.9 (<4.4); CHOLESTEROL 219 mg/dL; CREATININE 0.7 mg/dL (0.6-1.3); GFR - MDRD 83 (>89); GLUCOSE 101 mg/dL (74-104); HDL CHOLESTEROL 56 mg/dL; LDL CHOLESTEROL,CALCULATED 130 mg/dL; LDL/HDL RATIO 2.3 (<4.4); SODIUM 139 mmol/L (135-145); TOTAL PROTEIN 6.8 g/dL (6.4-8.9); TRIGLYCERIDES 164 mg/dL (48-352); VLDL CHOLESTEROL 33 mg/dL
[2023-11-30 12:49] LABS: THYROID STIMULATING HORMONE 1.72 uIU/mL (0.34-5.60)
== END 2023-11-30 08:12 | disposition home or self-care (01) ==
LOC: LAB.N 08:11
PROVIDERS: ATTEND Internal Medicine
DX: E78.5 Hyperlipidemia, unspecified (principal); I49.5 Sick sinus syndrome
CPT/HCPCS: 36415; 80053; 80061; 83721; 84443; 85025